=== PATIENT | female | born 1995 | race Caucasian/White ===

== ENCOUNTER 2017-04-23 13:56 | Emergency (ER) | payer OTHER ==
[~2017-04-23] VITALS: Ht 152.4 cm; Wt 109.0 kg
[2017-04-23 14:51] LABS: ADD MIUA? NO; BILIRUBIN NEGATIVE; BLOOD NEGATIVE; COLOR STRAW ((YELLOW)); GLUCOSE (STRIP) NEGATIVE; KETONES NEGATIVE; LEUKOCYTES NEGATIVE; NITRITE NEGATIVE; PROTEIN (STRIP) NEGATIVE; UROBILINOGEN 0.2 MG/DL (0.2-1.0)
[2017-04-23 14:59] LABS: EOSINOPHIL (%) 4.3 % (0-5); EOSINOPHIL COUNT 0.4 K/uL (0-0.3); HEMATOCRIT 39.5 % (36.0-46.0); IMMATURE GRANULOCYTE (%) 0.3 % (0.0-0.7); INSTRUMENT ABS NEUTROPHIL CT 6.1 K/uL; LYMPHOCYTE COUNT 2.1 K/uL (1.0-2.8); MCH 27.5 PG (29.0-34.0); MCHC 32.2 G/DL (30.0-36.0); MCV 85.5 FL (83-99); MEAN PLAT.VOLUME 9.6 uM^3 (9.5-12.4); MONOCYTE (%) 4.9 % (3-12); MONOCYTE COUNT 0.4 K/uL (0-0.8); NEUTROPHIL (%) 66.9 % (45-76); NEUTROPHIL COUNT 6.1 K/uL (1.8-6.4); PLATELET COUNT 193 K/uL (156-360); RBC DIS.WIDTH-CV 13.1 % (11.8-14.6); RBC DIS.WIDTH-SD 40.3 % (39-53); RED BLOOD COUNT 4.62 M/uL (3.80-5.20); WHITE BLOOD COUNT 9.1 K/uL (4.1-10.2)
[2017-04-23 15:09] LABS: CHLORIDE 106 mEq/L (99-109); POTASSIUM 3.9 mEq/L (3.7-5.4); SODIUM 139 mEq/L (136-147)
[2017-04-23 15:10] LABS: GLUCOSE 163 mg/dL (70-99)
[2017-04-23 15:12] LABS: ANION GAP 7 MEQ/L (2-14)
[2017-04-23 15:14] LABS: GFR ESTIMATE (CALCULATED) > 59 mL/min/
[2017-04-23 15:15] LABS: UREA NITROGEN (BUN) 11 mg/dL (9-23)
[2017-04-23 15:19] LABS: QUANTITATIVE HCG < 4.0 MIU/ML
[2017-04-23] MEDS ORDERED: MOTRIN800 MG PO (19:36)
[2017-04-23] MEDS ORDERED: VALIUM2 MG PO (19:36)
[2017-04-23] MEDS ORDERED: FIORICET 50-301 EACH PO (19:36)
[2017-04-23] MEDS ORDERED: FLONASE16 G1 BOTH NARES (19:39)
[2017-04-23] MEDS ORDERED: MUCINEX D ER T1 EACH PO (19:39)
[2017-04-23 19:54] VITALS: BP 115/65
== END 2017-04-23 19:55 | disposition home or self-care (01) ==
LOC: EME 13:56
PROVIDERS: Physician Assistant
DX: R51 Headache (principal); H65.93 Unspecified nonsuppurative otitis media, bilateral; R42 Dizziness and giddiness; J30.9 Allergic rhinitis, unspecified; R55 Syncope and collapse; R73.03 Prediabetes; Z79.84 Long term (current) use of oral hypoglycemic drugs
CPT/HCPCS: 70450; 80048; 81003; 84702; 85025; 93005; 99281; 99284; J1885; J3360; J7030